=== PATIENT | female | born 1985 | race Caucasian/White ===

== ENCOUNTER 2021-01-08 20:16 | Inpatient (IN) | payer OTHER ==
[~2021-01-08] VITALS: Ht 172.7 cm; Wt 130.6 kg
[2021-01-08 20:52] LABS: BILIRUBIN NEGATIVE (NEGATIVE); BLOOD NEGATIVE Ery/uL (NEGATIVE); CLARITY CLEAR (CLEAR); COLOR YELLOW (YELLOW); GLUCOSE (U) NORMAL (NORMAL); LEUKOCYTES NEGATIVE Leu/uL (NEGATIVE); NITRITE NEGATIVE (NEGATIVE); PROTEIN NEGATIVE (NEGATIVE); UROBILINOGEN 0.2 mg/dL (0.2-1.0); pH 6.5 (5.0-9.0)
[2021-01-08 20:52] LABS: HCT 35.5 % (37.0-47.0); HGB 11.8 g/dl (12.5-16.0); MCH 28.7 pg (25.0-31.0); MCHC 33.2 g/dL (32.0-36.0); MCV 86.4 fL (78.0-100.0); MPV 10.4 fL (6.0-9.5); RBC 4.11 M/uL (4.20-5.40); WBC 10.6 K/uL (4.0-10.5)
[2021-01-11 06:32] LABS: HGB 9.6 g/dl (12.5-16.0); MCHC 33.1 g/dL (32.0-36.0); MCV 87.6 fL (78.0-100.0); MPV 10.7 fL (6.0-9.5); RBC 3.31 M/uL (4.20-5.40)
--- NOTE | 2021-01-11 10:51 | NUR ---
RHOPHYLAC 1500IU GIVEN THROUGH 18 GAUGE IV IN RW. VSS
[2021-01-12] MEDS ORDERED: MLYLANTA/MAALOX30 ML PO (14:13)
[2021-01-12] MEDS ORDERED: IBUPROFEN800 MG PO (14:13)
[2021-01-12] MEDS ORDERED: COLACE100 MG PO (14:14)
[2021-01-12] MEDS ORDERED: PRENATAL FORMU1 EACH PO (14:15)
[2021-01-12] MEDS ORDERED: FEOSOL325 MG PO (14:15)
== END 2021-01-12 21:49 | disposition home or self-care (01) | DRG 806 ==
LOC: FOB 20:16
PROVIDERS: ADMIT Obstetrics & Gynecology
PROC: 10E0XZZ Delivery of Products of Conception, External Approach (ICD-10-PCS; principal; 2021-01-10)
PROC: 0KQM0ZZ Repair Perineum Muscle, Open Approach (ICD-10-PCS; 2021-01-10)
PROC: 10907ZC Drainage of Amniotic Fluid, Therapeutic from Products of Conception, Via Natural or Artificial Opening (ICD-10-PCS; 2021-01-10)
PROC: 3E033VJ Introduction of Other Hormone into Peripheral Vein, Percutaneous Approach (ICD-10-PCS; 2021-01-10)
PROC: 3E0234Z Introduction of Serum, Toxoid and Vaccine into Muscle, Percutaneous Approach (ICD-10-PCS; 2021-01-11)
DX: O99.214 Obesity complicating childbirth (principal); D62 Acute posthemorrhagic anemia; Z37.0 Single live birth; Z3A.39 39 weeks gestation of pregnancy; O10.92 Unspecified pre-existing hypertension complicating childbirth; O70.1 Second degree perineal laceration during delivery; Z20.822 Contact with and (suspected) exposure to COVID-19; O99.03 Anemia complicating the puerperium; O99.344 Other mental disorders complicating childbirth; F41.9 Anxiety disorder, unspecified; O26.893 Other specified pregnancy related conditions, third trimester; Z23 Encounter for immunization; Z67.41 Type O blood, Rh negative
CPT/HCPCS: 36415; 81003; 85461; 86850; 86900; 86901; J2001; J2790; J3010; J7120; U0002